=== PATIENT | female | born 1990 | race Caucasian/White ===

== ENCOUNTER 2016-09-06 06:28 | Inpatient (IN) | payer OTHER ==
[2016-09-06] MEDS ORDERED: Ampicillin 2 GM in Sodium Chloride 0.9% 100 ML IV ONE (06:49)
[2016-09-06] MEDS ORDERED: Sodium Chloride 0.9% 10 ML Syringe FLUSH PRN (06:49)
[2016-09-06] MEDS ORDERED: Ondansetron 4 MG/2 ML SDV IVPUSH PRN (06:49)
[2016-09-06] MEDS ORDERED: Lidocaine 1% 50 ML MDV INJECT ONE (06:49)
[2016-09-06] MEDS ORDERED: Oxytocin/Lactated Ringers 10 UNIT/1,000 ML BAG IV SCH (07:00)
--- NOTE | 2016-09-06 07:08 | PCM.LDHP ---
L&D History of Present Illness - General Date of Service: 09/06/16 Admit Problem/Dx: Patient Status Order with Admit Dx/Problem 09/06/16 06:49 Patient Status [ADT] Routine Admission Diagnosis/Problem Admission Diagnosis/Problem Source of Information: Patient History Limitations: Reports: No Limitations - History of Present Illness Introduction:: Patient is a 25 y/o at 38 6/7 wks who presents in active labor. Contractions started yesterday night, but did not get regular and painful until this morning. Patient's history is notable for a 24 week loss of a baby girl. All testing done at that time was negative. She then went on to have a full term delivery of a healthy baby boy. This has been uncomplicated. 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: , Spontaneous : 4 Para: 2 (1 living child) LMP (Approximate): - Past Surgical History Female Surgical History: Reports: Lithotripsy/ESWL Social & Family History - Tobacco Use Smoking Status *Q: Never Smoker Second Hand Smoke Exposure: No - Alcohol Use Alcohol Use History: No Days Per Week of Alcohol Use: 0 - Recreational Drug Use Recreational Drug Use: No H&P Review of Systems - Review of Systems: Review Of Systems: See Below General: Reports: No Symptoms Pulmonary: Reports: No Symptoms Cardiovascular: Reports: No Symptoms Gastrointestinal: Reports: No Symptoms Genitourinary: Reports: No Symptoms Musculoskeletal: Reports: No Symptoms L&D Exam - Exam Exam: See Below - Vital Signs Weight: 54.522 kg - OB Specific Contraction Intensity: Strong Movement: Active Heart Tones: Present Heart Tones per Min: 140 Heart Rate (FHR) Variability: Moderate (6-25 bmp) Presentation: Vertex - Portillo Score Portillo Score Cervix Position: Anterior Portillo Score Consistency: Soft Portillo Score Effacement: >80% Portillo Score Dilation: > 5 cm Portillo Score 's Station: +1, +2 Portillo Score Total: 13 - Exam General: Alert, Oriented, Cooperative Lungs: Clear to Auscultation, Normal Respiratory Effort Cardiovascular: Regular Rate, Regular Rhythm Abdomen: Soft Genitourinary: Normal external exam Extremities: Normal Inspection Skin: Warm, Dry, Intact - Problem List (1) 38 weeks gestation of SNOMED Code(s): 47937176 ICD Code: Z3A.38 - 38 WEEKS GESTATION OF Status: Acute Current Visit: Yes (2) GBS (group B Streptococcus carrier), +RV culture, currently SNOMED Code(s): 13560203, 325159586 ICD Code: O99.820 - STREPTOCOCCUS B CARRIER STATE COMPLICATING Status: Acute Current Visit: Yes (3) History of intrauterine in previous SNOMED Code(s): 817457641 ICD Code: O09.299 - SUPRVSN OF PREG W POOR REPRODCTV OR OBSTET HISTORY, UNSP TRI Status: Acute Current Visit: Yes (4) Normal labor SNOMED Code(s): 29808819 ICD Code: O80 - ENCOUNTER FOR FULL-TERM UNCOMPLICATED DELIVERY; Z37.9 - OUTCOME OF DELIVERY, UNSPECIFIED Status: Acute Current Visit: Yes Problem List Initiated/Reviewed/Updated: Yes Orders Last 24hrs: Active Orders 24 hr Category Date Time Status Patient Status [ADT] Routine ADT 09/06/16 06:49 Active Activity as Tolerated [RC] PFP Care 09/06/16 06:49 Active Communication Order [RC] ASDIRECTED Care 09/06/16 06:49 Active Heart Tones [RC] ASDIRECTED Care 09/06/16 06:49 Active Notify Provider [RC] PFP Care 09/06/16 06:49 Active Notify Provider [RC] PRN Care 09/06/16 06:49 Active Peripheral IV Care [RC] . DIRECTED Care 09/06/16 06:49 Active Vital Signs [RC] PER UNIT ROUTINE Care 09/06/16 06:49 Active Clear Liquid Diet [DIET] Diet 09/06/16 Breakfast Active CBC W/O DIFF,HEMOGRAM [HEME] Stat Lab 09/06/16 06:49 Ordered Ampicillin 1 gm Med 09/06/16 11:00 Active Sodium Chloride 0.9% [Normal Saline] 100 ml IV Q4H Ampicillin 2 gm Med 09/06/16 06:49 Active Sodium Chloride 0.9% [Normal Saline] 100 ml IV ONETIME Lactated Ringers [Ringers, Lactated] 1,000 ml Med 09/06/16 07:00 Active IV ASDIRECTED Ondansetron [Zofran] Med 09/06/16 06:49 Active 4 mg IVPUSH Q4H PRN Oxytocin/Lactated Ringers [Pitocin in LR 10 Units/1,000 Med 09/06/16 07:00 Active ML] 10 unit in 1,000 ml IV TITRATE Sodium Chloride 0.9% [Saline Flush] Med 09/06/16 06:49 Active 10 ml FLUSH ASDIRECTED PRN Electronic Heart Tones Ext w TOCO [WOMSER] Oth 09/06/16 06:49 Ordered Routine Electronic Heart Tones Internal [WOMSER] Per Unit Oth 09/06/16 06:49 Ordered Routine Peripheral IV Insertion Adult [OM.PC] Routine Oth 09/06/16 06:49 Ordered Resuscitation Status Routine Resus Stat 09/06/16 06:49 Ordered Medication Orders Ampicillin Sodium 2 gm/ Sodium (Chloride) 100 mls @ 200 mls/hr IV ONETIME ONE Stop: 09/06/16 07:18 Ampicillin Sodium 1 gm/ Sodium (Chloride) 100 mls @ 200 mls/hr IV Q4H [facility] Lactated Ringer's (Ringers, Lactated) 1,000 mls @ 100 mls/hr IV ASDIRECTED [facility] Oxytocin/Lactated Ringer's (Pitocin In Lr 10 Units/1,000 Ml) 10 unit in 1,000 mls @ 500 mls/hr IV TITRATE [facility] Ondansetron HCl (Zofran) 4 mg IVPUSH Q4H PRN PRN Reason: Nausea/Vomiting Sodium Chloride (Saline Flush) 10 ml FLUSH ASDIRECTED PRN PRN Reason: Keep Vein Open Assessment/Plan Comment:: 25 y/o at 38 6/7 wks presents in labor * CBC and T&S * GBS positive, Ampicillin to be started * Pain management per patient preference, would like epidural * Anticipate Tamara Purcell MD
[2016-09-06] MEDS: Lactated Ringers 1,000 ML IV SCH ×2 (07:10→08:00)
[2016-09-06] MEDS ORDERED: ePHEDrine 50 MG/ML SDV IVPUSH PRN (07:24)
[2016-09-06] MEDS ORDERED: fentaNYL 100 MCG/2 ML SDV EPIDUR PRN (07:24)
[2016-09-06] MEDS ORDERED: diphenhydrAMINE 50 MG/ML SDV IVPUSH PRN (07:24)
[2016-09-06] MEDS ORDERED: Bupivacaine/fentaNYL/NS 100 ML Bag EPIDUR SCH (07:30)
--- NOTE | 2016-09-06 07:49 | PCM.PREANE ---
Preanesthetic Assessment - Anesthesia/Transfusion/Family Hx Anesthesia History: Prior Anesthesia Without Reaction Family History of Anesthesia Reaction: No Transfusion History: No Prior Transfusion(s) - Review of Systems General: No Symptoms Pulmonary: No Symptoms Cardiovascular: No Symptoms Gastrointestinal: No symptoms Neurological: No Symptoms Other: Reports: None - Physical Assessment Pulse: 72 O2 Sat by Pulse Oximetry: 100 Respiratory Rate: 20 Blood Pressure: 103/69 Temperature: 98.5 F Height: 5 ft 1 in Weight: 54.522 kg ASA Class: 2 Mental Status: Alert & Oriented x3 Airway Class: Mallampati = 1 Dentition: Reports: Normal Dentition Thyro-Mental Finger Breadths: 3 Mouth Opening Finger Breadths: 3 ROM/Head Extension: Full Lungs: Clear to auscultation, Normal respiratory effort Cardiovascular: Regular Rate, Regular Rhythm - Lab Values: Laboratory Last Values WBC 14.40 K/mm3 (3.98-10.04) H 09/06/16 07:11 RBC 3.76 M/mm3 (3.98-5.22) L 09/06/16 07:11 Hgb 10.5 gm/L (11.2-15.7) L 09/06/16 07:11 Hct 33.1 % (34.1-44.9) L 09/06/16 07:11 MCV 88.0 fl (79.4-94.8) 09/06/16 07:11 MCH 27.9 pg (25.6-32.2) 09/06/16 07:11 MCHC 31.7 g/dl (32.2-35.5) L 09/06/16 07:11 RDW Std Deviation 44.9 fL (36.4-46.3) 09/06/16 07:11 Plt Count 248 K/mm3 (182-369) 09/06/16 07:11 MPV 10.2 fl (9.4-12.3) 09/06/16 07:11 - Allergies Allergies/Adverse Reactions: Allergies Allergy/AdvReac Type Severity Reaction Status Date / Time No Known Allergies Allergy Verified 11/06/13 21:48 CDT - Blood Blood Available: No - Acknowledgements Anesthesia Type Planned: Epidural Pt an Appropriate Candidate for the Planned Anesthesia: Yes Alternatives and Risks of Anesthesia Discussed w Pt/Guardian: Yes Pt/Guardian Understands and Agrees with Anesthesia Plan: Yes PreAnesthesia Questionnaire - Past Health History Medical/Surgical History: Denies Medical/Surgical History Cardiovascular History: Reports: None Respiratory History: Reports: None Genitourinary History: 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: , 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 : 4 (39 weeks) Para: 1 - Past Surgical History Female Surgical History: Reports: Lithotripsy/ESWL - SUBSTANCE USE Smoking Status *Q: Never Smoker Tobacco Use Within Last Twelve Months: No Second Hand Smoke Exposure: No Days Per Week of Alcohol Use: 0 Recreational Drug Use History: No - HOME MEDS Home Medications: Home Meds Magnesium 11/06/13 [History] [id number]/Iron Fumarate/FA/DSS [ 19 Tablet] 11/06/13 [History] Acetaminophen [Tylenol Extra Strength] 500 mg PO Q4H PRN #30 tab 12/27/13 [Rx] Ibuprofen [Motrin] 400 mg PO Q4H PRN #30 tablet 12/27/13 [Rx] - CURRENT (IN HOUSE) MEDS Current Meds: Current Medications Diphenhydramine HCl (Benadryl) 25 mg IVPUSH Q6H PRN PRN Reason: pruritis Ephedrine Sulfate (Ephedrine Sulfate) 5 mg IVPUSH ASDIRECTED PRN PRN Reason: Hypotension Fentanyl (Sublimaze) 100 mcg EPIDUR Q3H PRN PRN Reason: Pain Fentanyl/Bupivacaine HCl (Fentanyl/Bupivacaine/Ns 2 Mcg-0.125% 100 Ml) 100 ml EPIDUR ASDIRECTED [facility] Ampicillin Sodium 1 gm/ Sodium (Chloride) 100 mls @ 200 mls/hr IV Q4H [facility] Lactated Ringer's (Ringers, Lactated) 1,000 mls @ 100 mls/hr IV ASDIRECTED [facility] Last Admin: 09/06/16 07:10 Dose: 500 mls/hr Oxytocin/Lactated Ringer's (Pitocin In Lr 10 Units/1,000 Ml) 10 unit in 1,000 mls @ 500 mls/hr IV TITRATE [facility] Ondansetron HCl (Zofran) 4 mg IVPUSH Q4H PRN PRN Reason: Nausea/Vomiting Sodium Chloride (Saline Flush) 10 ml FLUSH ASDIRECTED PRN PRN Reason: Keep Vein Open Discontinued Medications Ampicillin Sodium 2 gm/ Sodium (Chloride) 100 mls @ 200 mls/hr IV ONETIME ONE Stop: 09/06/16 07:18 Last Admin: 09/06/16 07:11 Dose: 200 mls/hr Lidocaine HCl (Xylocaine 1%) 50 ml INJECT ONETIME ONE Stop: 09/06/16 06:50
--- NOTE | 2016-09-06 08:19 | PCM.DEL ---
L & D Note - General Info Date of Service: 09/06/16 - Delivery Note Labor: spontaneous Delivery Outcome: Livebirth Delivery Method: Spontaneous Vaginal Delivery Delivery Mode: Spontaneous Presentation: Right Occiput Anterior (KALEN) Nuchal cord: none Anesthesia Type: Epidural Amniotic Fluid Description: Clear Episiotomy Type: None Laceration: periurethral Suture type: vicryl Suture size: 3-0 Placenta: intact, spontaneous Cord: 3 vessels Estimated blood loss: 350 Resuscitation needed: Yes : bulb syringe, stimulated, warmed, blanket used, warmer used Score 1 min: 8 Score 5 min: 9 Delivery Comments (Free Text/Narrative):: Patient found to be complete and began pushing. With maternal pushing effort head delivered from an KALEN presentation. No nuchal cord present. With gentle downward traction the shoulders and body delivered. Infant placed on maternal abdomen. Cord clamped and cut. Cord blood obtained. Placenta allowed time to separate and then spontaneously expelled. Inspection of the perineum showed a small periurethral tear which was bleeding and so repaired with an interrupted suture of 3-0 vicryl. - Patient Data Vitals - most recent: Last Vital Signs Temp 36.9 C 09/06/16 07:49 Pulse 72 09/06/16 07:49 Resp 20 09/06/16 07:49 BP 103/69 09/06/16 07:49 Pulse Ox 100 09/06/16 07:49 Weight - most recent: 54.522 kg Lab Results last 24 hrs: Laboratory Results - last 24 hr 09/06/16 Range/Units 07:11 WBC 14.40 H (3.98-10.04) K/mm3 RBC 3.76 L (3.98-5.22) M/mm3 Hgb 10.5 L (11.2-15.7) gm/L Hct 33.1 L (34.1-44.9) % MCV 88.0 (79.4-94.8) fl MCH 27.9 (25.6-32.2) pg MCHC 31.7 L (32.2-35.5) g/dl RDW Std Deviation 44.9 (36.4-46.3) fL Plt Count 248 (182-369) K/mm3 MPV 10.2 (9.4-12.3) fl Med Orders - Current: Current Medications Diphenhydramine HCl (Benadryl) 25 mg IVPUSH Q6H PRN PRN Reason: pruritis Ephedrine Sulfate (Ephedrine Sulfate) 5 mg IVPUSH ASDIRECTED PRN PRN Reason: Hypotension Fentanyl (Sublimaze) 100 mcg EPIDUR Q3H PRN PRN Reason: Pain Last Admin: 09/06/16 07:50 Dose: 100 mcg Fentanyl/Bupivacaine HCl (Fentanyl/Bupivacaine/Ns 2 Mcg-0.125% 100 Ml) 100 ml EPIDUR ASDIRECTED [facility] Last Admin: 09/06/16 07:51 Dose: 100 ml Ampicillin Sodium 1 gm/ Sodium (Chloride) 100 mls @ 200 mls/hr IV Q4H [facility] Lactated Ringer's (Ringers, Lactated) 1,000 mls @ 100 mls/hr IV ASDIRECTED [facility] Last Admin: 09/06/16 07:10 Dose: 500 mls/hr Oxytocin/Lactated Ringer's (Pitocin In Lr 10 Units/1,000 Ml) 10 unit in 1,000 mls @ 500 mls/hr IV TITRATE [facility] Ondansetron HCl (Zofran) 4 mg IVPUSH Q4H PRN PRN Reason: Nausea/Vomiting Sodium Chloride (Saline Flush) 10 ml FLUSH ASDIRECTED PRN PRN Reason: Keep Vein Open Discontinued Medications Ampicillin Sodium 2 gm/ Sodium (Chloride) 100 mls @ 200 mls/hr IV ONETIME ONE Stop: 09/06/16 07:18 Last Admin: 09/06/16 07:11 Dose: 200 mls/hr Lidocaine HCl (Xylocaine 1%) 50 ml INJECT ONETIME ONE Stop: 09/06/16 06:50 - Problem List & Annotations (1) 38 weeks gestation of SNOMED Code(s): 87570538 Code(s): Z3A.38 - 38 WEEKS GESTATION OF Status: Acute Current Visit: Yes (2) GBS (group B Streptococcus carrier), +RV culture, currently SNOMED Code(s): 15957239, 881540888 Code(s): O99.820 - STREPTOCOCCUS B CARRIER STATE COMPLICATING Status: Acute Current Visit: Yes (3) History of intrauterine in previous SNOMED Code(s): 621748849 Code(s): O09.299 - SUPRVSN OF PREG W POOR REPRODCTV OR OBSTET HISTORY, UNSP TRI Status: Acute Current Visit: Yes (4) Normal labor SNOMED Code(s): 93477851 Code(s): O80 - ENCOUNTER FOR FULL-TERM UNCOMPLICATED DELIVERY; Z37.9 - OUTCOME OF DELIVERY, UNSPECIFIED Status: Acute Current Visit: Yes (5) Vaginal delivery SNOMED Code(s): 683629237 Code(s): O80 - ENCOUNTER FOR FULL-TERM UNCOMPLICATED DELIVERY Status: Acute Current Visit: Yes - Problem List Review Problem List Initiated/Reviewed/Updated: Yes - My Orders Last 24 Hours: My Active Orders 09/06/16 06:49 Patient Status [ADT] Routine Activity as Tolerated [RC] PFP Communication Order [RC] ASDIRECTED Heart Tones [RC] ASDIRECTED Notify Provider [RC] PFP Notify Provider [RC] PRN Peripheral IV Care [RC] . DIRECTED Vital Signs [RC] PER UNIT ROUTINE Ondansetron [Zofran] 4 mg IVPUSH Q4H PRN Sodium Chloride 0.9% [Saline Flush] 10 ml FLUSH ASDIRECTED PRN Electronic Heart Tones Ext w TOCO [WOMSER] Routine Electronic Heart Tones Internal [WOMSER] Per Unit Routine Peripheral IV Insertion Adult [OM.PC] Routine Resuscitation Status Routine 09/06/16 07:00 Lactated Ringers [Ringers, Lactated] 1,000 ml IV ASDIRECTED Oxytocin/Lactated Ringers [Pitocin in LR 10 Units/1,000 ML] 10 unit in 1,000 ml IV TITRATE 09/06/16 11:00 Ampicillin 1 gm Sodium Chloride 0.9% [Normal Saline] 100 ml IV Q4H 09/06/16 Breakfast Clear Liquid Diet [DIET] - Assessment Assessment:: 25 y/o G4 now P2112 PPD#0 from at 38 6/7 wks - Plan Plan:: * Routine cares * Encourage breast feeding * Discharge home in 1-2 days Tamara Purcell MD
[2016-09-06] MEDS ORDERED: Acetaminophen 325 MG Tab PO PRN (09:32)
[2016-09-06] MEDS ORDERED: Benzocaine/Menthol 20%-0.5% Spray 56 GM Canister TOP PRN (09:32)
[2016-09-06] MEDS ORDERED: Witch Hazel Medicated Pads 100/Jar TOP PRN (09:32)
[2016-09-06] MEDS ORDERED: Docusate Sodium 100 MG Cap PO PRN (09:32)
[2016-09-06] MEDS ORDERED: Lanolin 100% Cream 7 GM Tube TOP PRN (09:32)
[2016-09-06] MEDS ORDERED: Ibuprofen 600 MG Tab PO PRN (09:32)
[2016-09-06] MEDS ORDERED: Ampicillin 1 GM in Sodium Chloride 0.9% 100 ML IV SCH (11:00)
[2016-09-06] MEDS ORDERED: Bupivacaine 0.25% 10 ML SDV ONE (22:22)
--- NOTE | 2016-09-07 07:01 | PCM.PNPP ---
- General Info Date of Service: 09/07/16 Functional Status: Reports: pain controlled, tolerating diet, ambulating, urinating - Review of Systems General: Reports: No Symptoms Pulmonary: Reports: no symptoms Cardiovascular: Reports: No Symptoms Gastrointestinal: Reports: No symptoms Genitourinary: Reports: no symptoms Musculoskeletal: Reports: no symptoms - Patient Data Vital Signs - most recent: Last Vital Signs Temp 37.1 C 09/07/16 03:44 Pulse 81 09/07/16 03:29 Resp 18 09/07/16 03:29 BP 111/61 09/07/16 03:29 Pulse Ox 100 09/07/16 03:29 Weight - most recent: 63.458 kg Lab Results - last 24 hrs: Laboratory Results - last 24 hr 09/06/16 Range/Units 07:11 WBC 14.40 H (3.98-10.04) K/mm3 RBC 3.76 L (3.98-5.22) M/mm3 Hgb 10.5 L (11.2-15.7) gm/L Hct 33.1 L (34.1-44.9) % MCV 88.0 (79.4-94.8) fl MCH 27.9 (25.6-32.2) pg MCHC 31.7 L (32.2-35.5) g/dl RDW Std Deviation 44.9 (36.4-46.3) fL Plt Count 248 (182-369) K/mm3 MPV 10.2 (9.4-12.3) fl Med Orders - Current: Current Medications Acetaminophen (Tylenol) 650 mg PO Q4H PRN PRN Reason: mild pain or fever Benzocaine/Menthol (Dermoplast Pain Relief [place]) 0 gm TOP ASDIRECTED PRN PRN Reason: Perineal Comfort Measure Last Admin: 09/06/16 19:31 Dose: 1 applic Docusate Sodium (Colace) 100 mg PO BID PRN PRN Reason: Constipation Emollient Ointment (Lansinoh Hpa) 0 gm TOP ASDIRECTED PRN PRN Reason: Sore Nipples Ibuprofen (Motrin) 600 mg PO Q6H PRN PRN Reason: Mild pain or fever Last Admin: 09/06/16 21:15 Dose: 600 mg Witch Maria M (Tucks) 1 pad TOP ASDIRECTED PRN PRN Reason: Hemorrhoid pain Last Admin: 09/06/16 19:30 Dose: 1 applic Discontinued Medications Diphenhydramine HCl (Benadryl) 25 mg IVPUSH Q6H PRN PRN Reason: pruritis Ephedrine Sulfate (Ephedrine Sulfate) 5 mg IVPUSH ASDIRECTED PRN PRN Reason: Hypotension Fentanyl (Sublimaze) 100 mcg EPIDUR Q3H PRN PRN Reason: Pain Last Admin: 09/06/16 07:50 Dose: 100 mcg Fentanyl/Bupivacaine HCl (Fentanyl/Bupivacaine/Ns 2 Mcg-0.125% 100 Ml) 100 ml EPIDUR ASDIRECTED [facility] Last Admin: 09/06/16 07:51 Dose: 100 ml Ampicillin Sodium 2 gm/ Sodium (Chloride) 100 mls @ 200 mls/hr IV ONETIME ONE Stop: 09/06/16 07:18 Last Admin: 09/06/16 07:11 Dose: 200 mls/hr Ampicillin Sodium 1 gm/ Sodium (Chloride) 100 mls @ 200 mls/hr IV Q4H [facility] Lactated Ringer's (Ringers, Lactated) 1,000 mls @ 100 mls/hr IV ASDIRECTED [facility] Last Admin: 09/06/16 08:00 Dose: 500 mls/hr Oxytocin/Lactated Ringer's (Pitocin In Lr 10 Units/1,000 Ml) 10 unit in 1,000 mls @ 500 mls/hr IV TITRATE [facility] Last Admin: 09/06/16 09:10 Dose: 500 mls/hr Lidocaine HCl (Xylocaine 1%) 50 ml INJECT ONETIME ONE Stop: 09/06/16 06:50 Last Admin: 09/06/16 14:10 Dose: Not Given Ondansetron HCl (Zofran) 4 mg IVPUSH Q4H PRN PRN Reason: Nausea/Vomiting Sodium Chloride (Saline Flush) 10 ml FLUSH ASDIRECTED PRN PRN Reason: Keep Vein Open - Interaction Infant Disposition, : [place] in Room with Family Infant Interaction: Holding Infant Feeding: Breastfed ; Nursed Well Support Person: - Recovery Exam Fundal Tone: Firm Fundal Level: At Umbilicus Fundal Placement: Midline Lochia Amount: Small, Moderate Lochia Color: Rubra/Red Perineum Description: Intact, Minimal Bruising/Swelling Bladder Status: Voiding - Exam General: alert, oriented, cooperative Abdomen: soft, no tenderness Extremities: no edema Skin: warm, dry, intact - Problem List & Annotations (1) 38 weeks gestation of SNOMED Code(s): 80450614 Code(s): Z3A.38 - 38 WEEKS GESTATION OF Status: Acute Current Visit: Yes (2) GBS (group B Streptococcus carrier), +RV culture, currently SNOMED Code(s): 97712065, 145917899 Code(s): O99.820 - STREPTOCOCCUS B CARRIER STATE COMPLICATING Status: Acute Current Visit: Yes (3) History of intrauterine in previous SNOMED Code(s): 200963951 Code(s): O09.299 - SUPRVSN OF PREG W POOR REPRODCTV OR OBSTET HISTORY, UNSP TRI Status: Acute Current Visit: Yes (4) Normal labor SNOMED Code(s): 20405576 Code(s): O80 - ENCOUNTER FOR FULL-TERM UNCOMPLICATED DELIVERY; Z37.9 - OUTCOME OF DELIVERY, UNSPECIFIED Status: Acute Current Visit: Yes (5) Vaginal delivery SNOMED Code(s): 528615198 Code(s): O80 - ENCOUNTER FOR FULL-TERM UNCOMPLICATED DELIVERY Status: Acute Current Visit: Yes - Problem List Review Problem List Initiated/Reviewed/Updated: Yes - My Orders Last 24 Hours: My Active Orders 09/06/16 06:49 Activity as Tolerated [RC] PFP Communication Order [RC] ASDIRECTED Heart Tones [RC] ASDIRECTED Notify Provider [RC] PFP Notify Provider [RC] PRN Peripheral IV Care [RC] . DIRECTED Vital Signs [RC] PER UNIT ROUTINE Resuscitation Status Routine 09/06/16 09:32 Activity as Tolerated [RC] Vital Signs [RC] 04,12,20 Acetaminophen [Tylenol] 650 mg PO Q4H PRN Benzocaine/Menthol [Dermoplast Pain Relief [place]] See Dose Instructions TOP ASDIRECTED PRN Docusate Sodium [Colace] 100 mg PO BID PRN Ibuprofen [Motrin] 600 mg PO Q6H PRN Lanolin [Lansinoh HPA] See Dose Instructions TOP ASDIRECTED PRN Witch Maria M [Tucks] 1 pad TOP ASDIRECTED PRN Assess Lochia [WOMSER] Per Unit Routine Assess Uterine Involution [WOMSER] Per Unit Routine Breast Pump [WOMSER] Per Unit Routine Heat Therapy [OM.PC] PRN Ice Therapy [OM.PC] Per Unit Routine Perineal Care [OM.PC] Per Unit Routine Peripheral IV Discontinue [OM.PC] Routine Sitz Bath [OM.PC] Per Unit Routine 09/06/16 Lunch Regular Diet [DIET] 09/07/16 09:32 Heat Therapy [OM.PC] PRN - Assessment Assessment:: 25 y/o G4 now P2112 PPD#1 from at 38 6/7 wks - Plan Plan:: * Routine cares * Encourage breast feeding * Discharge home today Tamara Purcell MD
--- NOTE | 2016-09-07 07:02 | PCM.DCSUM1 ---
Discharge Summary - Discharge Data Discharge Date: 09/07/16 Discharge Disposition: Home, Self-Care 01 Condition: Good - Discharge Diagnosis/Problem(s) (1) 38 weeks gestation of SNOMED Code(s): 12363485 ICD Code: Z3A.38 - 38 WEEKS GESTATION OF Status: Acute Current Visit: Yes (2) GBS (group B Streptococcus carrier), +RV culture, currently SNOMED Code(s): 35406001, 938977124 ICD Code: O99.820 - STREPTOCOCCUS B CARRIER STATE COMPLICATING Status: Acute Current Visit: Yes (3) History of intrauterine in previous SNOMED Code(s): 599044952 ICD Code: O09.299 - SUPRVSN OF PREG W POOR REPRODCTV OR OBSTET HISTORY, UNSP TRI Status: Acute Current Visit: Yes (4) Normal labor SNOMED Code(s): 35746731 ICD Code: O80 - ENCOUNTER FOR FULL-TERM UNCOMPLICATED DELIVERY; Z37.9 - OUTCOME OF DELIVERY, UNSPECIFIED Status: Acute Current Visit: Yes (5) Vaginal delivery SNOMED Code(s): 270978167 ICD Code: O80 - ENCOUNTER FOR FULL-TERM UNCOMPLICATED DELIVERY Status: Acute Current Visit: Yes - Patient Summary/Data Complications: None Consults: None Recommended Follow-up Testing/Procedures: Follow up in 5-6 weeks for check Hospital Course: Patient is a 25 y/o at 38 6/7 wks who presented in labor. she progressed without the need for augmentation and underwent an uncomplicated vaginal delivery. Please see delivery note for full details. she did well and was discharged home on day #1. - Patient Instructions Diet: Regular Diet as Tolerated Activity: As Tolerated Activity, Other: Pelvic Rest for 6 weeks Driving: May Drive Today Showering/Bathing: May Shower Showering/Bathing, Other: May bathe Notify Provider of: Fever, Increased Pain, Swelling and Redness, Drainage, Nausea and/or Vomiting - Discharge Plan Home Medications: Home Meds SAV376/Iron Fumarate/FA/DSS [ 19 Tablet] 1 tab PO DAILY 11/06/13 [ History] Docusate Sodium [Colace] 100 mg PO BID PRN #0 cap 09/06/16 [Rx] Ibuprofen [IJD: Ibuprofen] 600 mg PO Q6H PRN #0 tablet 09/06/16 [Rx] Patient Handouts: , and Mastitis, Home Care Instructions for Mom Referrals: Tamara Purcell MD [Primary Care Provider] - (5-6 weeks for exam, call for appointment) - Discharge Summary/Plan Comment DC Time >30 min.: No - Patient Data Vitals - Most Recent: Last Vital Signs Temp 37.1 C 09/07/16 03:44 Pulse 81 09/07/16 03:29 Resp 18 09/07/16 03:29 BP 111/61 09/07/16 03:29 Pulse Ox 100 09/07/16 03:29 Weight - Most Recent: 63.458 kg Lab Results - Last 24 hrs: Laboratory Results - last 24 hr 09/06/16 Range/Units 07:11 WBC 14.40 H (3.98-10.04) K/mm3 RBC 3.76 L (3.98-5.22) M/mm3 Hgb 10.5 L (11.2-15.7) gm/L Hct 33.1 L (34.1-44.9) % MCV 88.0 (79.4-94.8) fl MCH 27.9 (25.6-32.2) pg MCHC 31.7 L (32.2-35.5) g/dl RDW Std Deviation 44.9 (36.4-46.3) fL Plt Count 248 (182-369) K/mm3 MPV 10.2 (9.4-12.3) fl Med Orders - Current: Current Medications Acetaminophen (Tylenol) 650 mg PO Q4H PRN PRN Reason: mild pain or fever Benzocaine/Menthol (Dermoplast Pain Relief [place]) 0 gm TOP ASDIRECTED PRN PRN Reason: Perineal Comfort Measure Last Admin: 09/06/16 19:31 Dose: 1 applic Docusate Sodium (Colace) 100 mg PO BID PRN PRN Reason: Constipation Emollient Ointment (Lansinoh Hpa) 0 gm TOP ASDIRECTED PRN PRN Reason: Sore Nipples Ibuprofen (Motrin) 600 mg PO Q6H PRN PRN Reason: Mild pain or fever Last Admin: 09/06/16 21:15 Dose: 600 mg Witch Maria M (Tucks) 1 pad TOP ASDIRECTED PRN PRN Reason: Hemorrhoid pain Last Admin: 09/06/16 19:30 Dose: 1 applic Discontinued Medications Diphenhydramine HCl (Benadryl) 25 mg IVPUSH Q6H PRN PRN Reason: pruritis Ephedrine Sulfate (Ephedrine Sulfate) 5 mg IVPUSH ASDIRECTED PRN PRN Reason: Hypotension Fentanyl (Sublimaze) 100 mcg EPIDUR Q3H PRN PRN Reason: Pain Last Admin: 09/06/16 07:50 Dose: 100 mcg Fentanyl/Bupivacaine HCl (Fentanyl/Bupivacaine/Ns 2 Mcg-0.125% 100 Ml) 100 ml EPIDUR ASDIRECTED RANDALL Last Admin: 09/06/16 07:51 Dose: 100 ml Ampicillin Sodium 2 gm/ Sodium (Chloride) 100 mls @ 200 mls/hr IV ONETIME ONE Stop: 09/06/16 07:18 Last Admin: 09/06/16 07:11 Dose: 200 mls/hr Ampicillin Sodium 1 gm/ Sodium (Chloride) 100 mls @ 200 mls/hr IV Q4H [facility] Lactated Ringer's (Ringers, Lactated) 1,000 mls @ 100 mls/hr IV ASDIRECTED [facility] Last Admin: 09/06/16 08:00 Dose: 500 mls/hr Oxytocin/Lactated Ringer's (Pitocin In Lr 10 Units/1,000 Ml) 10 unit in 1,000 mls @ 500 mls/hr IV TITRATE [facility] Last Admin: 09/06/16 09:10 Dose: 500 mls/hr Lidocaine HCl (Xylocaine 1%) 50 ml INJECT ONETIME ONE Stop: 09/06/16 06:50 Last Admin: 09/06/16 14:10 Dose: Not Given Ondansetron HCl (Zofran) 4 mg IVPUSH Q4H PRN PRN Reason: Nausea/Vomiting Sodium Chloride (Saline Flush) 10 ml FLUSH ASDIRECTED PRN PRN Reason: Keep Vein Open *Q Meaningful Use (DIS) - VTE *Q VTE Criteria *Q: - Stroke *Q Stroke Criteria *Q: - AMI *Q AMI Criteria *Q:
[2016-09-07 08:07] VITALS: BP 109/91
== END 2016-09-07 09:45 | disposition home or self-care (01) | DRG 775 ==
LOC: JD.OB 06:28 → JD.OBCHECK 06:28 → JD.OB 06:49 → OBSVTOIN 09:06
PROVIDERS: ADMIT Obstetrics & Gynecology; ATTEND Obstetrics & Gynecology
PROC: 10E0XZZ Delivery of Products of Conception, External Approach (ICD-10-PCS; principal; 2016-09-06)
PROC: 4A1HXFZ Monitoring of Products of Conception, Cardiac Rhythm, External Approach (ICD-10-PCS; 2016-09-06)
PROC: 3E0R3BZ Introduction of Anesthetic Agent into Spinal Canal, Percutaneous Approach (ICD-10-PCS; 2016-09-06)
PROC: 0HQ9XZZ Repair Perineum Skin, External Approach (ICD-10-PCS; 2016-09-06)
DX: O99.824 Streptococcus B carrier state complicating childbirth (principal); O71.82 Other specified trauma to perineum and vulva; O09.293 Supervision of pregnancy with other poor reproductive or obstetric history, third trimester; Z3A.38 38 weeks gestation of pregnancy; Z37.0 Single live birth
CPT/HCPCS: 36415; 85027; A9270-GY; J0290; J2590; J3010; J7030; J7120

== ENCOUNTER 2020-06-10 01:00 | Inpatient (IN) | payer BC ==
[2020-06-10] MEDS ORDERED: Nalbuphine 10 MG/1 ML Vial IVPUSH PRN (10:36)
[2020-06-10] MEDS ORDERED: Sodium Chloride 0.9% 10 ML Syringe FLUSH PRN (10:36)
[2020-06-10] MEDS ORDERED: Oxytocin/Lactated Ringers 10 UNIT/1,000 ML BAG IV SCH ×3 (10:45→17:30)
[2020-06-10] MEDS ORDERED: Ampicillin 2 GM in Sodium Chloride 0.9% 100 ML IV ONE (11:00)
[2020-06-10] MEDS: Lactated Ringers 1,000 ML IV SCH ×4 (11:59→22:28)
--- NOTE | 2020-06-10 12:23 | PCM.LDHP ---
L&D History of Present Illness - General Date of Service: 06/10/20 Admit Problem/Dx: Admission Diagnosis/Problem Admission Diagnosis/Problem Source of Information: Patient History Limitations: Reports: No Limitations - History of Present Illness Introduction:: Patient is a 29 y/o at 38 0/7 wks who presents to L&D for IOL after being seen in clinic. Has history of 24 week IUFD. Has been having weekly NST's. Today's NST had a late deceleration. 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: , Spontaneous : 5 Para: 3 (2 full term, 1 24 wk IUFD) LMP (Approximate): - Past Surgical History Female Surgical History: Reports: Lithotripsy/ESWL Social & Family History - Family History Family Medical History: No Pertinent Family History - Tobacco Use Tobacco Use Status *Q: Never Tobacco User - Caffeine Use Caffeine Use: Reports: Soda - Alcohol Use Alcohol Use History: No - Recreational Drug Use Recreational Drug Use: No H&P Review of Systems - Review of Systems: Review Of Systems: See Below General: Reports: No Symptoms Pulmonary: Reports: No Symptoms Cardiovascular: Reports: No Symptoms Gastrointestinal: Reports: No Symptoms Genitourinary: Reports: No Symptoms Musculoskeletal: Reports: No Symptoms Psychiatric: Reports: No Symptoms Neurological: Reports: No Symptoms L&D Exam - Exam Exam: See Below - Vital Signs Vital Signs: Last Vital Signs Temp 37.3 C 06/10/20 10:36 Pulse 88 06/10/20 10:36 Resp 14 06/10/20 10:36 BP 128/76 06/10/20 10:36 Pulse Ox 99 06/10/20 10:36 Weight: 68.492 kg - OB Specific Contraction Intensity: Irritability Movement: Active Heart Tones: Present Heart Tones per Min: 150 Heart Rate (FHR) Variability: Moderate (6-25 bmp) Presentation: Vertex - Portillo Score Portillo Score Cervix Position: Posterior Portillo Score Consistency: Soft Portillo Score Effacement: 51-70% Portillo Score Dilation: 1-2 cm Portillo Score Infant's Station: -2 Portillo Score Total: 6 - Exam General: Alert, Oriented, Cooperative Lungs: Clear to Auscultation, Normal Respiratory Effort Cardiovascular: Regular Rate, Regular Rhythm GI/Abdominal Exam: Soft, Non-Tender Genitourinary: Normal external exam Extremities: Normal Inspection Skin: Warm, Dry, Intact - Patient Data Lab Results Last 24 hrs: Laboratory Results - last 24 hr 06/10/20 06/10/20 Range/Units 10:55 10:55 WBC 13.27 H (3.98-10.04) K/mm3 RBC 4.36 (3.98-5.22) M/mm3 Hgb 12.4 D (11.2-15.7) gm/dl Hct 39.1 (34.1-44.9) % MCV 89.7 (79.4-94.8) fl MCH 28.4 (25.6-32.2) pg MCHC 31.7 L (32.2-35.5) g/dl RDW Std Deviation 46.2 (36.4-46.3) fL Plt Count 259 (182-369) K/mm3 MPV 10.6 (9.4-12.3) fl Neut % (Auto) 69.5 (34.0-71.1) % Lymph % (Auto) 15.8 L (19.3-51.7) % [place] % (Auto) 11.8 (4.7-12.5) % Eos % (Auto) 1.0 (0.7-5.8) Baso % (Auto) 0.2 (0.1-1.2) % Neut # (Auto) 9.23 H (1.56-6.13) K/mm3 Lymph # (Auto) 2.10 (1.18-3.74) K/mm3 [place] # (Auto) 1.57 H (0.24-0.36) K/mm3 Eos # (Auto) 0.13 (0.04-0.36) K/mm3 Baso # (Auto) 0.02 (0.01-0.08) K/mm3 Manual Slide Review Abnormal smear Blood Type B POSITIVE Gel Antibody Screen Negative Result Diagrams: 06/10/20 10:55 - Problem List (1) Abnormal test SNOMED Code(s): 611084206, 789134470 ICD Code: O28.9 - UNSP ABNORMAL FINDINGS ON SCREENING OF MOTHER Status: Acute Current Visit: Yes (2) 38 weeks gestation of SNOMED Code(s): 13550470 ICD Code: Z3A.38 - 38 WEEKS GESTATION OF Status: Acute Current Visit: No (3) GBS (group B Streptococcus carrier), +RV culture, currently SNOMED Code(s): 5596345497656, 378988222, 8920172345029 ICD Code: O99.820 - STREPTOCOCCUS B CARRIER STATE COMPLICATING Status: Acute Current Visit: No Problem List Initiated/Reviewed/Updated: Yes Orders Last 24hrs: Active Orders 24 hr Category Date Time Status Activity as Tolerated [RC] PFP Care 06/10/20 10:36 Active Communication Order [RC] ASDIRECTED Care 06/10/20 10:36 Active Heart Tones [RC] ASDIRECTED Care 06/10/20 10:36 Active Notify Provider [RC] PFP Care 06/10/20 10:36 Active Notify Provider [RC] PRN Care 06/10/20 10:36 Active Peripheral IV Care [RC] . DIRECTED Care 06/10/20 10:36 Active Vital Signs [RC] PER UNIT ROUTINE Care 06/10/20 10:36 Active Regular Diet [DIET] Diet 06/10/20 Lunch Active CORONAVIRUS COVID-19 MARI [MOLEC] Stat Lab 06/10/20 11:30 Received PATIENT RETYPE [BBK] Routine Lab 06/10/20 11:58 Ordered RAPID PLASMA REAGIN,RPR [CHEM] Routine Lab 06/10/20 10:55 Received Ampicillin 1 gm Med 06/10/20 15:00 Active Sodium Chloride 0.9% [Normal Saline] 100 ml IV Q4H Lactated Ringers [Ringers, Lactated] 1,000 ml Med 06/10/20 10:45 Active IV ASDIRECTED Nalbuphine [Nubain] Med 06/10/20 10:36 Active 10 mg IVPUSH Q2H PRN Oxytocin/Lactated Ringers [Pitocin in LR 10 Units/1,000 Med 06/10/20 10:45 Active ML] 10 unit in 1,000 ml IV .CONTINUOUS Oxytocin/Lactated Ringers [Pitocin in LR 10 Units/1,000 Med 06/10/20 10:45 Active ML] 10 unit in 1,000 ml IV .CONTINUOUS Sodium Chloride 0.9% [Saline Flush] Med 06/10/20 10:36 Active 10 ml FLUSH ASDIRECTED PRN Electronic Heart Tones Ext w TOCO [WOMSER] Oth 06/10/20 10:36 Ordered Routine Electronic Heart Tones Internal [WOMSER] Per Unit Oth 06/10/20 10:36 Ordered Routine Peripheral IV Insertion Adult [OM.PC] Routine Oth 06/10/20 10:36 Ordered Resuscitation Status Routine Resus Stat 06/10/20 10:36 Ordered Assessment/Plan Comment:: * Labs to be done * GBS positive, Ampicillin * Pitocin for IOL, AROM when able * Pain management per patient preference * Anticipate
[2020-06-10] MEDS: Ampicillin 1 GM in Sodium Chloride 0.9% 100 ML IV SCH ×3 (16:24→19:58)
[2020-06-10] MEDS ORDERED: Bupivacaine/fentaNYL/NS 100 ML Bag EPIDUR PRN (21:06)
[2020-06-10] MEDS ORDERED: fentaNYL 100 MCG/2 ML SDV EPIDUR PRN (21:06)
[2020-06-10] MEDS ORDERED: diphenhydrAMINE 50 MG/ML SDV IVPUSH PRN (21:06)
[2020-06-10] MEDS ORDERED: ePHEDrine 50 MG/ML SDV IVPUSH PRN (21:06)
[2020-06-10] MEDS ORDERED: fentaNYL 100 MCG/2 ML SDV ONE (21:39)
--- NOTE | 2020-06-10 22:13 | PCM.PREANE ---
Preanesthetic Assessment - Procedure Proposed Procedure: Labor Epidural - Anesthesia/Transfusion/Family Hx Anesthesia History: Prior Anesthesia Without Reaction Family History of Anesthesia Reaction: No Transfusion History: No Prior Transfusion(s) - Review of Systems General: No Symptoms Pulmonary: No Symptoms Cardiovascular: No Symptoms Gastrointestinal: No Symptoms Neurological: No Symptoms Other: Reports: None - Physical Assessment Vital Signs: Last Vital Signs Temp 37.3 C 06/10/20 10:36 Pulse 88 06/10/20 10:36 Resp 14 06/10/20 10:36 BP 128/76 06/10/20 10:36 Pulse Ox 99 06/10/20 10:36 Height: 1.55 m Weight: 68.492 kg ASA Class: 2 Mental Status: Alert & Oriented x3 Airway Class: Mallampati = 1 Dentition: Reports: Normal Dentition Thyro-Mental Finger Breadths: 3 Mouth Opening Finger Breadths: 3 ROM/Head Extension: Full Lungs: Clear to Auscultation, Normal Respiratory Effort - Lab Values: Laboratory Last Values WBC 13.27 K/mm3 (3.98-10.04) H 06/10/20 10:55 RBC 4.36 M/mm3 (3.98-5.22) 06/10/20 10:55 Hgb 12.4 gm/dl (11.2-15.7) D 06/10/20 10:55 Hct 39.1 % (34.1-44.9) 06/10/20 10:55 MCV 89.7 fl (79.4-94.8) 06/10/20 10:55 MCH 28.4 pg (25.6-32.2) 06/10/20 10:55 MCHC 31.7 g/dl (32.2-35.5) L 06/10/20 10:55 RDW Std Deviation 46.2 fL (36.4-46.3) 06/10/20 10:55 Plt Count 259 K/mm3 (182-369) 06/10/20 10:55 MPV 10.6 fl (9.4-12.3) 06/10/20 10:55 Neut % (Auto) 69.5 % (34.0-71.1) 06/10/20 10:55 Lymph % (Auto) 15.8 % (19.3-51.7) L 06/10/20 10:55 [place] % (Auto) 11.8 % (4.7-12.5) 06/10/20 10:55 Eos % (Auto) 1.0 (0.7-5.8) 06/10/20 10:55 Baso % (Auto) 0.2 % (0.1-1.2) 06/10/20 10:55 Neut # (Auto) 9.23 K/mm3 (1.56-6.13) H 06/10/20 10:55 Lymph # (Auto) 2.10 K/mm3 (1.18-3.74) 06/10/20 10:55 [place] # (Auto) 1.57 K/mm3 (0.24-0.36) H 06/10/20 10:55 Eos # (Auto) 0.13 K/mm3 (0.04-0.36) 06/10/20 10:55 Baso # (Auto) 0.02 K/mm3 (0.01-0.08) 06/10/20 10:55 Manual Slide Review Abnormal smear 06/10/20 10:55 SARS-CoV-2 RNA (MARI) Negative (NEGATIVE) 06/10/20 11:30 Blood Type B POSITIVE 06/10/20 10:55 Gel Antibody Screen Negative 06/10/20 10:55 - Allergies Allergies/Adverse Reactions: Allergies Allergy/AdvReac Type Severity Reaction Status Date / Time No Known Allergies Allergy Verified 06/10/20 20:22 - Acknowledgements Anesthesia Type Planned: Epidural Pt an Appropriate Candidate for the Planned Anesthesia: Yes Alternatives and Risks of Anesthesia Discussed w Pt/Guardian: Yes Pt/Guardian Understands and Agrees with Anesthesia Plan: Yes PreAnesthesia Questionnaire - Past Health History Medical/Surgical History: Denies Medical/Surgical History Cardiovascular History: Reports: None Respiratory History: Reports: None Genitourinary History: Reports: 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
--- NOTE | 2020-06-11 01:19 | PCM.DEL ---
L & D Note - General Info Date of Service: 06/11/20 - Delivery Note Labor: Induced by ARM, Induced by Oxytocin Delivery Outcome: Livebirth Infant Delivery Method: Spontaneous Vaginal Delivery-Single Infant Delivery Mode: Spontaneous Presentation: Left Occiput Anterior (SAIGE) Nuchal Cord: None Anesthesia Type: Epidural Amniotic Fluid Description: Clear Episiotomy Type: None Laceration: Labial Suture type: Vicryl Suture size: 3-0 Placenta: Intact, Spontaneous Cord: 3 Vessels Estimated Blood Loss: 100 : Bulb Syringe, Stimulated, Warmed, [place] Used, Warmer Used Delivery Comments (Free Text/Narrative):: Patient found to be complete and began pushing. With maternal pushing effort head delivered from an SAIGE presentation. No nuchal cord present. With gentle downward traction the shoulders and body delivered. Infant placed on maternal abdomen. Cord clamped and cut. Cord blood obtained. Placenta allowed time to separate and expelled intact. Inspection of perineum showed a small left labial laceration. This was repaired with a 3-0 Vicryl. - General Info Date of Service: 06/11/20 - Patient Data Vitals - Most Recent: Last Vital Signs Temp 37.4 C 06/10/20 19:30 Pulse 80 06/10/20 19:30 Resp 14 06/10/20 19:30 BP 131/80 06/10/20 19:30 Pulse Ox 98 06/10/20 19:30 Weight - Most Recent: 68.492 kg - Problem List & Annotations (1) Abnormal test SNOMED Code(s): 768499140, 583147132 Code(s): O28.9 - UNSP ABNORMAL FINDINGS ON SCREENING OF MOTHER Status: Acute Current Visit: Yes (2) 38 weeks gestation of SNOMED Code(s): 47744109 Code(s): Z3A.38 - 38 WEEKS GESTATION OF Status: Acute Current Visit: No (3) GBS (group B Streptococcus carrier), +RV culture, currently SNOMED Code(s): 5896949076668, 769303362, 2567929227031 Code(s): O99.820 - STREPTOCOCCUS B CARRIER STATE COMPLICATING Status: Acute Current Visit: No (4) Vaginal delivery SNOMED Code(s): 198342460 Code(s): O80 - ENCOUNTER FOR FULL-TERM UNCOMPLICATED DELIVERY Status: Acute Current Visit: No - Problem List Review Problem List Initiated/Reviewed/Updated: Yes - My Orders Last 24 Hours: My Active Orders 06/10/20 10:36 Activity as Tolerated [RC] PFP Communication Order [RC] ASDIRECTED Heart Tones [RC] ASDIRECTED Notify Provider [RC] PFP Notify Provider [RC] PRN Peripheral IV Care [RC] . DIRECTED Vital Signs [RC] PER UNIT ROUTINE Nalbuphine [Nubain] 10 mg IVPUSH Q2H PRN Sodium Chloride 0.9% [Saline Flush] 10 ml FLUSH ASDIRECTED PRN Electronic Heart Tones Ext w TOCO [WOMSER] Routine Electronic Heart Tones Internal [WOMSER] Per Unit Routine Peripheral IV Insertion Adult [OM.PC] Routine Resuscitation Status Routine 06/10/20 10:45 Lactated Ringers [Ringers, Lactated] 1,000 ml IV ASDIRECTED Oxytocin/Lactated Ringers [Pitocin in LR 10 Units/1,000 ML] 10 unit in 1,000 ml IV .CONTINUOUS Oxytocin/Lactated Ringers [Pitocin in LR 10 Units/1,000 ML] 10 unit in 1,000 ml IV .CONTINUOUS 06/10/20 10:55 RAPID PLASMA REAGIN,RPR [CHEM] Routine 06/10/20 Lunch Regular Diet [DIET] 06/10/20 16:00 Ampicillin 1 gm Sodium Chloride 0.9% [Normal Saline] 100 ml IV Q4H 06/10/20 17:30 Oxytocin/Lactated Ringers [Pitocin in LR 10 Units/1,000 ML] 10 unit in 1,000 ml IV TITRATE - Assessment Assessment:: PPD#0 - Plan Plan:: * Routine cares * Breast feeding * Discharge home in 1-2 days
[2020-06-11] MEDS ORDERED: Witch Hazel Medicated Pads 40/Jar TOP PRN (02:20)
[2020-06-11] MEDS ORDERED: Benzocaine/Menthol 20%-0.5% Spray 56 GM Canister TOP PRN (02:20)
[2020-06-11] MEDS ORDERED: Docusate Sodium 100 MG Cap PO PRN (02:20)
[2020-06-11] MEDS ORDERED: Acetaminophen 325 MG Tab PO PRN (02:20)
[2020-06-11] MEDS: Ibuprofen 600 MG Tab PO PRN ×2 (03:10→20:36)
[2020-06-11] MEDS: Ampicillin 1 GM in Sodium Chloride 0.9% 100 ML IV SCH ×2 (03:24→04:15)
--- NOTE | 2020-06-11 07:35 | PCM48HPAN ---
Post Anesthesia Note - EVALUATION WITHIN 48HRS OF ANESTHETIC Vital Signs in Normal Range: Yes Patient Participated in Evaluation: Yes Respiratory Function Stable: Yes Airway Patent: Yes Cardiovascular Function Stable: Yes Hydration Status Stable: Yes Pain Control Satisfactory: Yes Nausea and Vomiting Control Satisfactory: Yes Mental Status Recovered: Yes Vital Signs: Last Vital Signs Temp 37.4 C 06/10/20 19:30 Pulse 80 06/10/20 19:30 Resp 14 06/10/20 19:30 BP 131/80 06/10/20 19:30 Pulse Ox 98 06/10/20 19:30
[2020-06-11] MEDS ORDERED: Phenylephrine/Normal Saline 100 MCG/ML 10 ML Syringe ONE (15:00)
[2020-06-11] MEDS ORDERED: Bupivacaine 0.25% 10 ML SDV ONE (15:00)
[2020-06-11] MEDS ORDERED: ePHEDrine 50 MG/ML SDV ONE (15:00)
--- NOTE | 2020-06-12 06:50 | PCM.PNPP ---
- General Info Date of Service: 06/12/20 Functional Status: Reports: Pain Controlled, Tolerating Diet, Ambulating, Urinating - Review of Systems General: Reports: No Symptoms Pulmonary: Reports: No Symptoms Cardiovascular: Reports: No Symptoms Gastrointestinal: Reports: No Symptoms Genitourinary: Reports: No Symptoms Musculoskeletal: Reports: No Symptoms - Patient Data Vital Signs - Most Recent: Last Vital Signs Temp 36.6 C 06/12/20 03:31 Pulse 64 06/12/20 03:31 Resp 16 06/12/20 03:31 BP 105/52 L 06/12/20 03:31 Pulse Ox 99 06/12/20 03:31 Weight - Most Recent: 68.492 kg Lab Results - Last 24 Hours: Laboratory Results - last 24 hr 06/10/20 Range/Units 10:55 RPR Non-reactive (NONREACTIVE) Med Orders - Current: Current Medications Acetaminophen (Acetaminophen 325 Mg Tab) 650 mg PO Q4H PRN PRN Reason: mild pain or fever Benzocaine/Menthol (Benzocaine/Menthol 20%-0.5% [place] 56 Gm Canister) 0 gm TOP ASDIRECTED PRN PRN Reason: Perineal Comfort Measure Last Admin: 06/11/20 03:12 Dose: 1 canister Documented by: Docusate Sodium (Docusate Sodium 100 Mg Cap) 100 mg PO BID PRN PRN Reason: Constipation Ibuprofen (Ibuprofen 600 Mg Tab) 600 mg PO Q6H PRN PRN Reason: Mild pain or fever Last Admin: 06/11/20 20:36 Dose: 600 mg Documented by: Spencer Franz (Spencer Franz Medicated Pads 40/Jar) 1 pad TOP ASDIRECTED PRN PRN Reason: Perineal Comfort Measure Discontinued Medications Bupivacaine HCl (Bupivacaine 0.25% 10 Ml Sdv) 10 ml .ROUTE .STK-MED ONE Stop: 06/11/20 15:01 Diphenhydramine HCl (Diphenhydramine 50 Mg/Ml Sdv) 25 mg IVPUSH Q6H PRN PRN Reason: pruritis Ephedrine Sulfate (Ephedrine 50 Mg/Ml Sdv) 5 mg IVPUSH ASDIRECTED PRN PRN Reason: Hypotension Ephedrine Sulfate (Ephedrine 50 Mg/Ml Sdv) 50 mg .ROUTE .STK-MED ONE Stop: 06/11/20 15:01 Fentanyl (Fentanyl 100 Mcg/2 Ml Sdv) 100 mcg EPIDUR Q3H PRN PRN Reason: Pain Last Admin: 06/10/20 23:22 Dose: 100 mcg Documented by: Fentanyl (Fentanyl 100 Mcg/2 Ml Sdv) Confirm Administered Dose 100 mcg .ROUTE .STK-MED ONE Stop: 06/10/20 21:40 Last Admin: 06/11/20 04:16 Dose: Not Given Documented by: Fentanyl/Bupivacaine HCl (Bupivacaine/Fentanyl/Ns 100 Ml Bag) 100 ml EPIDUR ASDIRECTED PRN PRN Reason: Pain Last Admin: 06/10/20 23:22 Dose: 100 ml Documented by: Oxytocin/Lactated Ringer's (Pitocin In Lr 10 Units/1,000 Ml) 10 unit in 1,000 mls @ 100 mls/hr IV .CONTINUOUS RANDALL Oxytocin/Lactated Ringer's (Pitocin In Lr 10 Units/1,000 Ml) 10 unit in 1,000 mls @ 500 mls/hr IV .CONTINUOUS RANDALL Ampicillin Sodium 2 gm/ Sodium (Chloride) 100 mls @ 200 mls/hr IV ONETIME ONE Stop: 06/10/20 11:29 Last Admin: 06/10/20 11:58 Dose: 200 mls/hr Documented by: Ampicillin Sodium 1 gm/ Sodium (Chloride) 100 mls @ 200 mls/hr IV Q4H RANDALL Last Admin: 06/11/20 03:24 Dose: 200 mls/hr Documented by: Lactated Ringer's (Ringers, Lactated) 1,000 mls @ 100 mls/hr IV ASDIRECTED RANDALL Last Admin: 06/10/20 22:28 Dose: 100 mls/hr Documented by: Ampicillin Sodium 1 gm/ Sodium (Chloride) 100 mls @ 200 mls/hr IV Q4H RANDALL Last Admin: 06/11/20 04:15 Dose: Not Given Documented by: Oxytocin/Lactated Ringer's (Pitocin In Lr 10 Units/1,000 Ml) 10 unit in 1,000 mls @ 12 mls/hr IV TITRATE RANDALL; Protocol Last Titration: 06/11/20 01:00 Dose: 83.33 munits/min, 499.98 mls/hr Documented by: Nalbuphine HCl (Nalbuphine 10 Mg/1 Ml Vial) 10 mg IVPUSH Q2H PRN PRN Reason: Pain Phenylephrine HCl (Phenylephrine/Normal Saline 100 Mcg/Ml 10 Ml Syringe) 1 mg .ROUTE .STK-MED ONE Stop: 06/11/20 15:01 Sodium Chloride (Sodium Chloride 0.9% 10 Ml Syringe) 10 ml FLUSH ASDIRECTED PRN PRN Reason: Keep Vein Open - Infant Interaction Disposition, : [place] in Room with Family Interaction: Holding Infant Feeding: Attempted ; Nursed Fair/Poor (Baby also being syringe fed ) Support Person: - Recovery Exam Fundal Tone: Firm Fundal Level: 1 Fingerbreadths Below Umbilicus Fundal Placement: Midline Lochia Amount: Small Lochia Color: Rubra/Red Perineum Description: Other (see below) Other Perinuem Description: 1st degree with repair Episiotomy/Laceration: Approximated Bladder Status: Voiding - Exam General: Alert, Oriented, Cooperative GI/Abdominal Exam: Soft, Non-Tender - Problem List & Annotations (1) Abnormal test SNOMED Code(s): 893241040, 705013178 Code(s): O28.9 - UNSP ABNORMAL FINDINGS ON SCREENING OF MOTHER Status: Acute Current Visit: Yes (2) 38 weeks gestation of SNOMED Code(s): 33994704 Code(s): Z3A.38 - 38 WEEKS GESTATION OF Status: Acute Current Visit: No (3) GBS (group B Streptococcus carrier), +RV culture, currently SNOMED Code(s): 0573554757330, 299935794, 9543251870489 Code(s): O99.820 - STREPTOCOCCUS B CARRIER STATE COMPLICATING Status: Acute Current Visit: No (4) Vaginal delivery SNOMED Code(s): 807638173 Code(s): O80 - ENCOUNTER FOR FULL-TERM UNCOMPLICATED DELIVERY Status: Acute Current Visit: No - Problem List Review Problem List Initiated/Reviewed/Updated: Yes - My Orders Last 24 Hours: My Active Orders 06/11/20 Breakfast Regular Diet [DIET] 06/12/20 02:20 Heat Therapy [OM.PC] PRN - Assessment Assessment:: PPD#1 - Plan Plan:: * Routine cares * Breast feeding * Discharge home today if Peds discharges baby. Otherwise discharge home tomorrow
--- NOTE | 2020-06-12 07:31 | PCM.DCSUM1 ---
Discharge Summary - Discharge Data Discharge Date: 06/12/20 Discharge Disposition: Home, Self-Care 01 Condition: Good - Referral to Home Health Primary Care Physician: PCP None - Discharge Diagnosis/Problem(s) (1) Abnormal test SNOMED Code(s): 483003835, 938243857 ICD Code: O28.9 - UNSP ABNORMAL FINDINGS ON SCREENING OF MOTHER Status: Acute Current Visit: Yes (2) 38 weeks gestation of SNOMED Code(s): 35635949 ICD Code: Z3A.38 - 38 WEEKS GESTATION OF Status: Acute Current Visit: No (3) GBS (group B Streptococcus carrier), +RV culture, currently SNOMED Code(s): 7609488279476, [id number], 3606666298943 ICD Code: O99.820 - STREPTOCOCCUS B CARRIER STATE COMPLICATING Status: Acute Current Visit: No (4) Vaginal delivery SNOMED Code(s): 929085311 ICD Code: O80 - ENCOUNTER FOR FULL-TERM UNCOMPLICATED DELIVERY Status: Acute Current Visit: No - Patient Summary/Data Complications: None Consults: None Recommended Follow-up Testing/Procedures: Follow up in 3 weeks for check Hospital Course: 29 y/o at 38 0/7 wks who had an NST in clinic for history of IUFD which was notable for late decelerations. Given this finding recommendation was for induction. Done with pitocin and AROM. Progressed well to complete dilation and underwent an uncomplicated . See delivery note. did well and was discharged home on PPD#1 - Patient Instructions Diet: Regular Diet as Tolerated Activity: As Tolerated Activity, Other: Pelvic rest for 6 weeks Driving: May Drive Today Showering/Bathing: May Shower Showering/Bathing, Other: May bathe Notify Provider of: Fever, Increased Pain, Swelling and Redness, Drainage, Nausea and/or Vomiting - Discharge Plan *PRESCRIPTION DRUG MONITORING PROGRAM REVIEWED*: No *COPY OF PRESCRIPTION DRUG MONITORING REPORT IN PATIENT AMI: No Home Medications: Home Meds Prenat 115/Iron Fum/Folic/Dss [ 19 Tablet] 1 tab PO DAILY 11/06/13 [History] Omeprazole Magnesium [Prilosec Otc] 20 mg PO DAILY 06/10/20 [History] Docusate Sodium [Colace] 100 mg PO BID PRN cap 06/11/20 [Rx] Ibuprofen [Motrin] 600 mg PO Q6H PRN tablet 06/11/20 [Rx] Referrals: Tamara Purcell MD [Physician] - (3 weeks for check - can be telehealth appt) - Discharge Summary/Plan Comment DC Time >30 min.: No - Patient Data Vitals - Most Recent: Last Vital Signs Temp 36.6 C 06/12/20 03:31 Pulse 64 06/12/20 03:31 Resp 16 06/12/20 03:31 BP 105/52 L 06/12/20 03:31 Pulse Ox 99 06/12/20 03:31 Weight - Most Recent: 68.492 kg Lab Results - Last 24 hrs: Laboratory Results - last 24 hr 06/10/20 Range/Units 10:55 RPR Non-reactive (NONREACTIVE) Med Orders - Current: Current Medications Acetaminophen (Acetaminophen 325 Mg Tab) 650 mg PO Q4H PRN PRN Reason: mild pain or fever Benzocaine/Menthol (Benzocaine/Menthol 20%-0.5% [place] 56 Gm Canister) 0 gm TOP ASDIRECTED PRN PRN Reason: Perineal Comfort Measure Last Admin: 06/11/20 03:12 Dose: 1 canister Documented by: Docusate Sodium (Docusate Sodium 100 Mg Cap) 100 mg PO BID PRN PRN Reason: Constipation Ibuprofen (Ibuprofen 600 Mg Tab) 600 mg PO Q6H PRN PRN Reason: Mild pain or fever Last Admin: 06/11/20 20:36 Dose: 600 mg Documented by: Spencer Franz (Spencer Franz Medicated Pads 40/Jar) 1 pad TOP ASDIRECTED PRN PRN Reason: Perineal Comfort Measure Discontinued Medications Bupivacaine HCl (Bupivacaine 0.25% 10 Ml Sdv) 10 ml .ROUTE .STK-MED ONE Stop: 06/11/20 15:01 Diphenhydramine HCl (Diphenhydramine 50 Mg/Ml Sdv) 25 mg IVPUSH Q6H PRN PRN Reason: pruritis Ephedrine Sulfate (Ephedrine 50 Mg/Ml Sdv) 5 mg IVPUSH ASDIRECTED PRN PRN Reason: Hypotension Ephedrine Sulfate (Ephedrine 50 Mg/Ml Sdv) 50 mg .ROUTE .STK-MED ONE Stop: 06/11/20 15:01 Fentanyl (Fentanyl 100 Mcg/2 Ml Sdv) 100 mcg EPIDUR Q3H PRN PRN Reason: Pain Last Admin: 06/10/20 23:22 Dose: 100 mcg Documented by: Fentanyl (Fentanyl 100 Mcg/2 Ml Sdv) Confirm Administered Dose 100 mcg .ROUTE .STK-MED ONE Stop: 06/10/20 21:40 Last Admin: 06/11/20 04:16 Dose: Not Given Documented by: Fentanyl/Bupivacaine HCl (Bupivacaine/Fentanyl/Ns 100 Ml Bag) 100 ml EPIDUR ASDIRECTED PRN PRN Reason: Pain Last Admin: 06/10/20 23:22 Dose: 100 ml Documented by: Oxytocin/Lactated Ringer's (Pitocin In Lr 10 Units/1,000 Ml) 10 unit in 1,000 mls @ 100 mls/hr IV .CONTINUOUS RANDALL Oxytocin/Lactated Ringer's (Pitocin In Lr 10 Units/1,000 Ml) 10 unit in 1,000 mls @ 500 mls/hr IV .CONTINUOUS RANDALL Ampicillin Sodium 2 gm/ Sodium (Chloride) 100 mls @ 200 mls/hr IV ONETIME ONE Stop: 06/10/20 11:29 Last Admin: 06/10/20 11:58 Dose: 200 mls/hr Documented by: Ampicillin Sodium 1 gm/ Sodium (Chloride) 100 mls @ 200 mls/hr IV Q4H RANDALL Last Admin: 06/11/20 03:24 Dose: 200 mls/hr Documented by: Lactated Ringer's (Ringers, Lactated) 1,000 mls @ 100 mls/hr IV ASDIRECTED RANDALL Last Admin: 06/10/20 22:28 Dose: 100 mls/hr Documented by: Ampicillin Sodium 1 gm/ Sodium (Chloride) 100 mls @ 200 mls/hr IV Q4H RANDALL Last Admin: 06/11/20 04:15 Dose: Not Given Documented by: Oxytocin/Lactated Ringer's (Pitocin In Lr 10 Units/1,000 Ml) 10 unit in 1,000 mls @ 12 mls/hr IV TITRATE RANDALL; Protocol Last Titration: 06/11/20 01:00 Dose: 83.33 munits/min, 499.98 mls/hr Documented by: Nalbuphine HCl (Nalbuphine 10 Mg/1 Ml Vial) 10 mg IVPUSH Q2H PRN PRN Reason: Pain Phenylephrine HCl (Phenylephrine/Normal Saline 100 Mcg/Ml 10 Ml Syringe) 1 mg .ROUTE .ST-MED ONE Stop: 06/11/20 15:01 Sodium Chloride (Sodium Chloride 0.9% 10 Ml Syringe) 10 ml FLUSH ASDIRECTED PRN PRN Reason: Keep Vein Open
[2020-06-12 09:19] VITALS: BP 122/69; PULSE 81
== END 2020-06-12 12:30 | disposition home or self-care (01) | DRG 560 ==
LOC: JD.OB 01:00 → OBSVTOIN 06-11 01:00 → JD.OB 06-11 01:01
PROVIDERS: ADMIT Obstetrics & Gynecology; ATTEND Obstetrics & Gynecology
PROC: 10E0XZZ Delivery of Products of Conception, External Approach (ICD-10-PCS; principal; 2020-06-11)
PROC: 10907ZC Drainage of Amniotic Fluid, Therapeutic from Products of Conception, Via Natural or Artificial Opening (ICD-10-PCS; 2020-06-11)
PROC: 3E033VJ Introduction of Other Hormone into Peripheral Vein, Percutaneous Approach (ICD-10-PCS; 2020-06-11)
PROC: 0UQMXZZ Repair Vulva, External Approach (ICD-10-PCS; 2020-06-11)
PROC: 3E0R3BZ Introduction of Anesthetic Agent into Spinal Canal, Percutaneous Approach (ICD-10-PCS; 2020-06-11)
PROC: 00HU33Z Insertion of Infusion Device into Spinal Canal, Percutaneous Approach (ICD-10-PCS; 2020-06-11)
DX: O99.824 Streptococcus B carrier state complicating childbirth (principal); Z3A.38 38 weeks gestation of pregnancy; Z37.0 Single live birth; O70.0 First degree perineal laceration during delivery; Z20.822 Contact with and (suspected) exposure to COVID-19
CPT/HCPCS: 01967; 36415; 51702; 59025; 59409; 85025; 86592; 86850; 86900; 86901; A9270-GY; J0290; J2370; J2590; J3010; J3490; J7120; U0002